=== PATIENT | female | born 1955 | race Caucasian/White ===

== ENCOUNTER → 2019-11-19 | Outpatient (CLI) | payer BC | END | disposition home or self-care (01) | LOC: CFH 13:59 | PROVIDERS: ATTEND Specialist | DX: Z12.31 Encounter for screening mammogram for malignant neoplasm of breast (principal); Z13.820 Encounter for screening for osteoporosis; M85.88 Other specified disorders of bone density and structure, other site | CPT/HCPCS: 76641; 77063; 77067; 77080 ==

== ENCOUNTER → 2020-07-16 | Outpatient (CLI) | payer MEDICARE, OTHER ==
[~2020-07-16] MED LIST: ESCI10TA10 PO; LEVO112T2 PO
== END | disposition home or self-care (01) ==
LOC: STAR 11:16
PROVIDERS: ATTEND Orthopaedic Surgery
DX: Z01.812 Encounter for preprocedural laboratory examination (principal); Z20.828 Contact with and (suspected) exposure to other viral communicable diseases; M20.012 Mallet finger of left finger(s); M85.35 Osteitis condensans, thigh
CPT/HCPCS: 36415; 87635; 93005

== ENCOUNTER 2020-07-21 08:07 | Day surgery (SDC) | payer MEDICARE, OTHER ==
[~2020-07-21] VITALS: Ht 167.6 cm; Wt 69.1 kg
[2020-07-21] MEDS ORDERED: CHLORHEXIDINE 15 ML UDC ONE (08:55)
[2020-07-21] MEDS ORDERED: CHLORHEXIDINE 15 ML UDC MM ONE (09:00)
[2020-07-21] MEDS ORDERED: LACTATED RINGERS 1,000 ML IV SCH (09:00)
[2020-07-21] MEDS ORDERED: MIDAZOLAM 1 MG/ML, 2ML ONE (09:14)
[2020-07-21] MEDS ORDERED: FENTANYL PF 100 MCG/2ML ONE (09:14)
[2020-07-21] MEDS ORDERED: ACETAMINOPHEN 325 MG TABLET PO PRN (09:30)
[2020-07-21] MEDS ORDERED: OXYcodone 5 MG/5 ML ORAL.SOL UDC PO PRN (09:30)
[2020-07-21] MEDS ORDERED: ONDANSETRON 2MG/ML, 2ML IVPush PRN (09:30)
[2020-07-21] MEDS ORDERED: FENTANYL PF 100 MCG/2ML IV PRN (09:30)
[2020-07-21] MEDS ORDERED: PROPOFOL 10 MG/ML, 20ML ONE (09:48)
[2020-07-21] MEDS ORDERED: LIDOCAINE-MPF 2% ,5ML ONE (09:49)
== END 2020-07-21 11:15 | disposition home or self-care (01) ==
LOC: OUT 08:07
PROVIDERS: ATTEND Orthopaedic Surgery
DX: M65.352 Trigger finger, left little finger (principal); M72.0 Palmar fascial fibromatosis [Dupuytren]; I10 Essential (primary) hypertension; I25.10 Atherosclerotic heart disease of native coronary artery without angina pectoris; F32.9 Major depressive disorder, single episode, unspecified; F12.90 Cannabis use, unspecified, uncomplicated; Z87.891 Personal history of nicotine dependence; Z72.89 Other problems related to lifestyle; Z88.8 Allergy status to other drugs, medicaments and biological substances; Z98.890 Other specified postprocedural states
CPT/HCPCS: 26055; 26123; 26437; 88305; J2250; J2704; J3010; J7120

== ENCOUNTER 2020-12-21 09:53 | Outpatient (CLI) | payer MEDICARE, OTHER | END 2020-12-21 23:59 | disposition home or self-care (01) | LOC: CFH 09:53 | PROVIDERS: ATTEND Family Medicine | DX: Z12.31 Encounter for screening mammogram for malignant neoplasm of breast (principal) | CPT/HCPCS: 77063; 77067 ==